=== PATIENT | male | born 1950 | race Caucasian/White ===

== ENCOUNTER → 2020-01-17 09:18 | Outpatient (CLI) | payer MEDICARE, OTHER, SELFPAY ==
--- NOTE | 2020-01-17 09:21 | DI.CT.S_ITS ---
PROCEDURE: CT SINUS SCREEN WO CON INDICATIONS: Chronic pansinusitis TECHNIQUE: Noncontrast 3.0 mm axial images acquired from the frontal sinuses to the mid-sella, with coronal and sagittal reformats. For radiation dose reduction, the following was used: automated exposure control, adjustment of mA and/or kV according to patient size. COMPARISON: None. FINDINGS: Image quality: Excellent. Maxillary Sinuses: No bony remodeling or destruction. Rlka-fe-lmhhvaby mucosal thickening is seen involving the inferior right maxillary sinus. Minimal mucosal thickening is seen within the inferior left maxillary sinus. Ethmoid Air Cells: No bony remodeling or destruction. Mild mucosal thickening is seen within ethmoid air cells. Sphenoid Sinuses: No bony remodeling or destruction. Sinuses are clear. Frontal Sinuses: No bony remodeling or destruction. There is mild mucosal thickening seen involving the inferior medial frontal sinuses. Ostiomeatal Complexes: Ostiomeatal complexes are patent, yet there constitutionally narrowed, with bilateral infraorbital septations, as on series 4, image 25. Miscellaneous: Visualized intra-orbital contents are normal. No ruslan bullosa or paradoxical turbinate curvature. There is mild leftward nasal septal deviation. IMPRESSION: Multifocal paranasal sinus disease is seen, which is most prominent within the right maxillary sinus. Patent, yet narrowed ostiomeatal complexes, with bilateral infraorbital septations. Mild leftward nasal septal deviation. Dictated by: Jaison Chris M.D. on 01/17/2020 at 8:54 Approved by: Jaison Chris M.D. on 01/17/2020 at 8:56
== END ==
PROVIDERS: PCP Otolaryngology; Referring Provider Otolaryngology; Visit Provider Otolaryngology
DX: J32.4 Chronic pansinusitis (principal); J34.2 Deviated nasal septum
CPT/HCPCS: 70486

== ENCOUNTER 2020-05-18 15:48 | Emergency (ER) | payer MEDICARE, OTHER, SELFPAY ==
[2020-05-18 16:06] VITALS: BP 201/98; PULSE 68; RESP 14; TEMP 36.4; O2SAT 100; BMI 32.7
--- NOTE | 2020-05-18 16:11 | DI.RAD.S_ITS ---
PROCEDURE: XR KNEE LT 3V INDICATIONS: knee pain,felt a pop TECHNIQUE: 3 views of the knee were acquired. COMPARISON: None. FINDINGS: Bones: No fractures or dislocations. No suspicious bony lesions. Mild tricompartmental osteoarthritis. Soft tissues: No joint effusion. No suspicious soft tissue calcifications. IMPRESSION: No fracture. No acute osseous lesion. If symptoms and/or clinical suspicion for pathology persists, further assessment with repeat radiographs (7-10 days) or advanced imaging (e.g. CT, MRI or bone scan) should be considered. Dictated by: Didi Eaton MD, PhD on 05/18/2020 at 16:42 Approved by: Didi Eaton MD, PhD on 05/18/2020 at 16:49
--- NOTE | 2020-05-18 17:58 | ED_ITS ---
HPI - Extremity Injury (Lower) General Chief Complaint: Extremity Injury, Lower Stated Complaint: left knee, something popped Time Seen by Provider: 05/18/20 17:58 Source: patient Mode of arrival: Wheelchair Limitations: no limitations History of Present Illness HPI Narrative: 69-year-old gentleman with a history of atrial fibrillation anticoagulated on apixaban, reflux scheduled for Kam fundoplication in the [facility], hypothyroidism [place]. He stepped [place] with his right foot and is he push off with his left foot felt a sharp pop the posterior knee and over the number of hours it took to drive home pain and swelling has increased significantly. He does have a history of left meniscal knee surgery, right ACL surgery and multiple ankle surgeries. He has taken Tylenol and as long as he is not bearing weight his pain is tolerable. He has been using ice on the knee as well. He describes no numbness or tingling into his foot and no specific calf pain or spasm. Related Data Home Medications Medication Instructions Recorded Confirmed gabapentin 300 mg capsule 300 mg PO BID 06/26/18 03/24/20 levothyroxine 75 mcg tablet 75 mcg PO DAILY 06/26/18 03/24/20 simvastatin 40 mg tablet 40 mg PO BEDTIME 06/26/18 03/24/20 apixaban 5 mg tablet 5 mg PO BID 03/02/19 03/24/20 pantoprazole 40 mg tablet,delayed 40 mg PO BID tab 03/02/19 03/24/20 release propranolol 10 mg tablet 10 mg PO BID 12/24/19 03/24/20 Previous Rx's Medication Instructions Recorded trazodone 100 mg tablet 100 mg PO BEDTIME PRN #90 tab 12/24/19 alprazolam 0.25 mg tablet 0.25 mg PO BID PRN 90 Days #30 tab 03/27/20 clonazepam 1 mg tablet 1 mg PO BEDTIME #90 tab 03/27/20 Allergies Allergy/AdvReac Type Severity Reaction Status Date / Time bacitracin Allergy Intermediate FACIAL Verified 05/18/20 16:08 SWELLING, REDNESS erythromycin base Allergy Intermediate SWELL UP, Verified 05/18/20 16:08 TURN RED Review of Systems Review of Systems Narrative: Remainder review of systems is otherwise unremarkable Patient History Medical History Atrial fibrillation Chronic post-traumatic stress disorder (PTSD) Generalized anxiety disorder with panic attacks Hypothyroidism (acquired) Surgical History H/O arthroscopic knee surgery Social History Smoking Status: Former smoker Smoking Status: Former smoker alcohol intake frequency: holidays/special occasions only Substance Use Type: does not use Exam Narrative Exam Narrative: General: Alert appropriate in no acute distress Respiratory: Able to speak in full sentences, no obvious respiratory distress Skin: No obvious rashes, warm and dry Neurologic: Grossly intact no obvious asymmetries or abnormalities Psych, appropriate insight and affect, cooperative Left knee: Mild effusion no medial or collateral ligamentous pain. Tenderness in the popliteal fossa. Likely laxity with anterior and posterior drawer tests but pain is somewhat limiting. Neurovascularly intact distally Initial Vital Signs Initial Vital Signs: Vital Signs Temperature 97.5 F L 05/18/20 16:06 Pulse Rate 68 05/18/20 16:06 Respiratory Rate 14 05/18/20 16:06 Blood Pressure 201/98 H 05/18/20 16:06 Pulse Oximetry 100 05/18/20 16:06 Course Orders Ordered: ED Orders 05/18/20 16:11 XR knee LT 3V Stat Vital Signs Vital signs: Vital Signs - 8 hr 05/18/20 16:06 Temperature 97.5 F L Pulse Rate 68 Respiratory Rate 14 Blood Pressure 201/98 H Pulse Oximetry 100 MDM - Extremity Injury (Lower) Imaging Data XR knee: Radiologist's Impression: FINDINGS: Bones: No fractures or dislocations. No suspicious bony lesions. Mild tricompartmental osteoarthritis. Soft tissues: No joint effusion. No suspicious soft tissue calcifications. IMPRESSION: No fracture. No acute osseous lesion. If symptoms and/or clinical suspicion for pathology persists, further assessment with repeat radiographs (7-10 days) or advanced imaging (e.g. CT, MRI or bone scan) should be considered. Dictated by: Didi Eaton MD, PhD on 05/18/2020 at 16:42 MDM Narrative Medical decision making narrative: 69-year-old gentleman with left knee ligamentous injury concern for ACL injury. X-rays are unremarkable. He has crutches available to him at home. Will place him in a long leg knee immobilizer continue with Tylenol for pain control icing as tolerated and follow-up with Dr. Brigitte Venegas in about a week for definitive treatment and diagnosis. Discharge Plan Departure Patient Disposition: Home Clinical Impression: Internal derangement of knee Qualifiers: Laterality: left Qualified Code(s): M23.92 - Unspecified internal derangement of left knee Instructions: DI for Knee Sprain Activity Restrictions/Additional Instructions: Thank you for coming in today I am sorry that you injured her knee. I am glad that it is not broken but I am concerned that you have done some ligamentous injury Please use Tylenol as needed for pain. Ice will definitely help. Use the knee immobilizer to help with stability to prevent any future falls. I would encourage you to pull out the crutches that you have available at home. Please call Dr. Venegas's office tomorrow to schedule an appointment for follow-up I hope you heal quickly Prescriptions: No Action simvastatin 40 mg tablet 40 mg PO BEDTIME RF: 0 levothyroxine [Synthroid] 75 mcg tablet 75 mcg PO DAILY RF: 0 gabapentin 300 mg capsule 300 mg PO BID RF: 0 alprazolam 0.25 mg tablet 0.25 mg PO BID PRN (Reason: panic attack(s)) 90 Days Qty: 30 RF: 1 clonazepam 1 mg tablet 1 mg PO BEDTIME Qty: 90 RF: 1 pantoprazole 40 mg tablet,delayed release (DR/EC) 40 mg PO BID RF: 0 Eliquis 5 mg tablet 5 mg PO BID RF: 0 propranolol 10 mg tablet 10 mg PO BID RF: 0 trazodone 100 mg tablet 100 mg PO BEDTIME PRN (Reason: sleep) Qty: 90 RF: 1 Referrals: Piotr Landry MD [Primary Care Provider] - Brigitte Venegas MD [Physician] -
== END 2020-05-18 18:49 | disposition home or self-care (01) ==
PROVIDERS: Emergency Provider Emergency Medicine; PCP Otolaryngology
DX: M23.92 Unspecified internal derangement of left knee (principal)
CPT/HCPCS: 73562; 99282; 99283